=== PATIENT | female | born 1965 | race Caucasian/White ===

== ENCOUNTER 2024-09-17 08:30 | Emergency (ER) | payer BC, OTHER ==
[2024-09-17 09:15] LABS: BASOPHILS PERCENT AUTO 0.5 % (0.0-1.0); EOSINOPHILS PERCENT AUTO 0.7 % (0.0-6.0); HEMATOCRIT 39.6 % (37.0-47.0); HEMOGLOBIN 13.6 gm/dl (12.0-16.0); IMMATURE GRAN ABSOLUTE AUTO 0.02 K/mm3 (0.00-0.05); IMMATURE GRAN PERCENT AUTO 0.3 % (0.0-0.4); LYMPHOCYTES ABSOLUTE AUTO 0.7 K/mm3 (1.0-4.8); LYMPHOCYTES PERCENT AUTO 12.8 % (24.0-44.0); MEAN CORPUSCULAR HEMOGLOBIN 31.2 pg (28.0-32.0); MEAN CORPUSCULAR HGB CONC 34.3 g/dl (32.0-36.0); MEAN CORPUSCULAR VOLUME 90.8 fl (83.0-99.0); MEAN PLATELET VOLUME 10.2 fl (9.4-12.3); MONOCYTES ABSOLUTE AUTO 0.5 K/mm3 (0.0-0.8); MONOCYTES PERCENT AUTO 8.2 % (0.0-8.0); NEUTROPHILS ABSOLUTE AUTO 4.4 K/mm3 (1.8-7.7); NEUTROPHILS PERCENT AUTO 77.5 % (41.0-71.0); PLATELET COUNT,PLT 157 K/mm3 (150-400); RED BLOOD CELL COUNT 4.36 M/mm3 (4.10-5.30); WHITE BLOOD CELL COUNT,WBC 5.72 K/mm3 (3.9-11.3)
[2024-09-17] MEDS: Labetalol 100 MG/20 ML MDV IVPUSH ONE ×2 (09:17→11:15)
[2024-09-17 09:43] LABS: A/G RATIO 1.2 (1-2); ALBUMIN 3.7 g/dl (3.4-5.0); ANION GAP 16.6 (5-15); BUN/CREATININE RATIO 16.4 (14-18); CALCIUM 8.9 mg/dL (8.5-10.1); CREATININE 1.1 mg/dL (0.55-1.02); EST CRCL DRUG DOSING (CG) 51.55 mL/min; POTASSIUM,K 3.6 mEq/L (3.5-5.1); PROTEIN TOTAL,TP 6.8 g/dl (6.4-8.2)
[2024-09-17 09:44] LABS: CORONAVIRUS COVID-19 NAA NEGATIVE (NEGATIVE); INFLUENZA A NAA NEGATIVE (NEGATIVE); RESPIRATORY SYNCYTIAL VIR NAA NEGATIVE (NEGATIVE)
[2024-09-17] MEDS ORDERED: Naloxone 0.4 MG/ML SDV IVPUSH PRN (10:29)
[2024-09-17] MEDS: Aspirin 81 MG Tab.Chew PO ONE (10:36)
[2024-09-17] MEDS: fentaNYL 100 MCG/2 ML SDV IVPUSH ONE (10:36)
[2024-09-17] MEDS: Nitroglycerin/D5W 25 MG/250 ML BOTTLE IV SCH (11:33)
[2024-09-17] MEDS: Enoxaparin 100 MG/1 ML Syringe SUBCUT ONE (11:35)
== END 2024-09-17 14:30 ==
LOC: JD.ED 08:30
DX: R07.1 Chest pain on breathing (principal); R79.89 Other specified abnormal findings of blood chemistry; I10 Essential (primary) hypertension; K21.9 Gastro-esophageal reflux disease without esophagitis; E11.9 Type 2 diabetes mellitus without complications; Z87.891 Personal history of nicotine dependence; Z79.899 Other long term (current) drug therapy
CPT/HCPCS: 0241U; 36415; 71045; 80053; 83880; 84484; 85025; 85379; 93005; 96365; 96366; 96372; 96375; 96376; 99285; A9270; J1650; J1921; J2305; J3010